=== PATIENT | female | born 1965 | race Caucasian/White ===

== ENCOUNTER → 2019-09-18 | Outpatient (CLI) | payer OTHER | END | disposition home or self-care (01) | LOC: LAB 09:50 → LAB SHORT 09:50 | DX: R39.15 Urgency of urination (principal) | CPT/HCPCS: 87077; 87086; 87186 ==

== ENCOUNTER → 2020-01-05 | Outpatient (CLI) | payer OTHER ==
[2020-01-08 13:07] LABS: HPV 16 Negative (Negative); HPV 18 Negative (Negative); HPV OTHER HR TYPES Positive (Negative)
== END ==
LOC: LAB 09:00 → LAB SHORT 09:00
PROVIDERS: Nurse Practitioner Family
DX: Z12.4 Encounter for screening for malignant neoplasm of cervix (principal)
CPT/HCPCS: 87624; 87625; G0123

== ENCOUNTER → 2020-03-06 | Outpatient (CLI) | payer OTHER ==
[~2020-03-06] MED LIST: LEVSOD112 PO
== END | disposition home or self-care (01) ==
LOC: LAB SHORT 10:50 → LAB 10:50
DX: R35.0 Frequency of micturition (principal)
CPT/HCPCS: 87077; 87086; 87186

== ENCOUNTER → 2020-07-01 | Outpatient (CLI) | payer OTHER | END | disposition home or self-care (01) | LOC: LAB 12:45 | DX: R35.0 Frequency of micturition (principal) | CPT/HCPCS: 87077; 87086; 87186 ==

== ENCOUNTER → 2021-03-17 | Outpatient (CLI) | payer OTHER | END | disposition home or self-care (01) | LOC: LAB UCHC 11:31 → LAB SHORT 11:31 → LAB 11:31 | DX: N76.4 Abscess of vulva (principal) | CPT/HCPCS: 87070; 87077; 87147; 87186; 87205 ==

== ENCOUNTER → 2021-07-25 | Outpatient (CLI) | payer OTHER | END | disposition home or self-care (01) | LOC: LAB 13:24 → LAB SHORT 13:24 | DX: L03.115 Cellulitis of right lower limb (principal) | CPT/HCPCS: 87070; 87075; 87077; 87186; 87205 ==

== ENCOUNTER → 2025-07-06 | Outpatient (CLI) | payer OTHER | LOC: LAB SHORT 07:45 → LAB 07:45 | PROVIDERS: Student in an Organized Health Care Education/Training Program | DX: Z12.4 Encounter for screening for malignant neoplasm of cervix (principal) | CPT/HCPCS: 87624; G0145 ==